=== PATIENT | female | born 1995 | race Caucasian/White ===

== ENCOUNTER 2017-06-01 03:25 | Inpatient (IN) | payer MEDICAID ==
[2017-06-01 03:55] LABS: APPEARANCE,URINE CLOUDY; BILIRUBIN,URINE NEGATIVE (NEGATIVE); GLUCOSE, URINE NEGATIVE (NEGATIVE); KETONES,URINE NEGATIVE (NEGATIVE)
[2017-06-01 03:56] LABS: LEUKOCYTE ESTERASE,URINE TRACE (NEGATIVE); NITRITE,URINE NEGATIVE (NEGATIVE); PROTEIN,URINE 30 mg/dL (NEGATIVE); RBC,URINE RARE /HPF; URINE SPECIFIC GRAVITY 1.023; UROBILINOGEN,URINE NEGATIVE mg/dL (<2.0); WBC,URINE RARE /HPF
[2017-06-01 04:16] LABS: URINE BARBITURATES SCREEN NEGATIVE; URINE METHADONE SCREEN NEGATIVE; URINE OPIATES LOW NEGATIVE; URINE PHENCYCLIDINE SCREEN NEGATIVE
[2017-06-01] MEDS ORDERED: ONDANSETRON HCL INJ/PF 4 MG/2 ML SDV ONE (04:59)
[2017-06-01 05:42] LABS: ABSOLUTE LYMPHOCYTES (AUTO) 1.2 10^3/uL (0.5-4.7); ABSOLUTE MONOCYTES (AUTO) 0.3 10^3/uL (0.1-1.4); BASOPHILS % (AUTO) 0.3 % (0-2); EOSINOPHILS % (AUTO) 0.1 % (0-6); HEMATOCRIT 34.3 % (36.0-47.0); HEMOGLOBIN 11.6 g/dL (12.0-15.5); HGB HCT DIFFERENCE 0.5; MEAN CORPUSCULAR HEMOGLOBIN 30.6 pg (27.0-33.4); MEAN CORPUSCULAR HGB CONC 33.9 g/dL (32.0-36.0); MEAN CORPUSCULAR VOLUME 90 fl (80-97); MONOCYTES % (AUTO) 2.2 % (3-13); RED BLOOD COUNT 3.81 10^6/uL (3.72-5.28); SEGMENTED NEUTROPHILS % (AUTO) 89.4 % (42-78); WHITE BLOOD COUNT 14.5 10^3/uL (4.0-10.5)
[2017-06-01 06:00] LABS: ALANINE AMINOTRANSFERASE 24 U/L (9-52); ALBUMIN 3.1 g/dL (3.5-5.0); ALKALINE PHOSPHATASE 73 U/L (38-126); ANION GAP 9 (5-19); ASPARTATE AMINO TRANSFERASE 12 U/L (14-36); BILIRUBIN,DIRECT 0.2 mg/dL (0.0-0.4); BILIRUBIN,TOTAL 0.2 mg/dL (0.2-1.3); BLOOD UREA NITROGEN 8 mg/dL (7-20); CALCIUM 8.9 mg/dL (8.4-10.2); CARBON DIOXIDE 23 mmol/L (22-30); CHLORIDE 107 mmol/L (98-107); CREATININE RESULT 0.56 mg/dL (0.52-1.25); GLUCOSE 125 mg/dL (75-110); POTASSIUM 3.9 mmol/L (3.6-5.0); SODIUM 138.7 mmol/L (137-145); TOTAL PROTEIN 5.8 g/dL (6.3-8.2)
[2017-06-01] MEDS ORDERED: MORPHINE SULFATE 10 MG/ML INJ ONE (06:34)
--- NOTE | 2017-06-01 08:19 | RADIOLOGY REPORT (SQ) ---
EXAM DESCRIPTION: U/S RETROPERITON (RENAL/AORTA) COMPLETED DATE/TIME: 06/01/2017 7:45 am REASON FOR STUDY: right sided back pain COMPARISON: None. TECHNIQUE: Dynamic and static grayscale images acquired of the kidneys and bladder and recorded on P ACS. Additional selected color Doppler and spectral images recorded. LIMITATIONS: None. FINDINGS: RIGHT KIDNEY: Normal size. Normal echogenicity. No solid or suspicious masses. No hydrone phrosis. No calcifications. LEFT KIDNEY: Normal size. Normal echogenicity. No solid or suspicious masses. No hydronephrosis. No calcifications. BLADDER: No masses. OTHER FINDINGS: No other significant finding. IMPRESSION: NORMAL RENAL AND BLADDER ULTRASOUND. COMMENT: The degree of renal pelvicalyceal dilation is within normal limits for the patient's curren t stage of . TECHNICAL DOCUMENTATION: JOB ID: [id number] [employer]- All Rights Reserved
--- NOTE | 2017-06-01 08:20 | RADIOLOGY REPORT (SQ) ---
EXAM DESCRIPTION: U/S OB LIMITED COMPLETED DATE/TIME: 06/01/2017 7:45 am REASON FOR STUDY: right sided back pain COMPARISON: None. TECHNIQUE: Limited transabdominal grayscale ultrasound for evaluation of specific requested obstetri brad parameters. LIMITATIONS: None. FINDINGS: EGA: 23 week 2 day. ANNELISE: 09/26/2017. EFW: 602 g. PERCENTILE: 37 percent. PLACENTA: Anterior. CERVICAL LENGTH: 3.3 cm. Closed. IRMA: Largest measured pocket 4.4 cm. FHR: 133 beats per minute. PRESENTATION: Cephalic. OTHER: No other significant findings. IMPRESSION: LIMITED OBSTETRICAL ULTRASOUND WITH MEASURED PARAMETERS DELINEATED ABOVE. Trimester of : Third trimester - 28 weeks to delivery. TECHNICAL DOCUMENTATION: JOB ID: [id number] [employer]- All Rights Reserved
[2017-06-01] MEDS: CEFAZOLIN 1 GM/D5W RTU 1 GM/50 ML RTUPB IV SCH ×2 (12:26→18:03)
[2017-06-01] MEDS: OXYCODONE-ACETAMINOPHEN 5-325 MG TABLET PO PRN (15:20)
[2017-06-01] MEDS: RINGERS SOLUTION,LACTATED 1,000 ML IV PRN (20:37)
[2017-06-02] MEDS: CEFAZOLIN 1 GM/D5W RTU 1 GM/50 ML RTUPB IV SCH ×4 (00:37→18:31)
[2017-06-02] MEDS: OXYCODONE-ACETAMINOPHEN 5-325 MG TABLET PO PRN ×2 (03:23→20:04)
[2017-06-02] MEDS ORDERED: DIPHENHYDRAMINE HCL 50 MG/ML VIAL IV ONE (04:45)
[2017-06-02] MEDS ORDERED: PROMETHAZINE HCL 25 MG SUPP.RECT PR ONE ×2 (04:45→12:45)
[2017-06-02] MEDS: ONDANSETRON 4 MG TAB.RAPDIS PO PRN ×2 (05:43→20:02)
[2017-06-02 06:52] LABS: HEMATOCRIT 34.8 % (36.0-47.0); HGB HCT DIFFERENCE 1.2; MEAN CORPUSCULAR VOLUME 89 fl (80-97); WHITE BLOOD COUNT 14.9 10^3/uL (4.0-10.5)
[2017-06-02 06:53] LABS: ABSOLUTE EOSINOPHILS # (AUTO) 0.1 10^3/uL (0.0-0.6); ABSOLUTE LYMPHOCYTES (AUTO) 1.8 10^3/uL (0.5-4.7); ABSOLUTE MONOCYTES (AUTO) 0.6 10^3/uL (0.1-1.4); ABSOLUTE NEUT (AUTO) 12.4 10^3/uL (1.7-8.2); BASOPHILS % (AUTO) 0.2 % (0-2); EOSINOPHILS % (AUTO) 0.4 % (0-6); LYMPHOCYTES % (AUTO) 11.9 % (13-45); MEAN CORPUSCULAR HEMOGLOBIN 30.8 pg (27.0-33.4); MEAN CORPUSCULAR HGB CONC 34.6 g/dL (32.0-36.0); MONOCYTES % (AUTO) 3.9 % (3-13); RED CELL DISTRIBUTION WIDTH 13.9 % (11.5-14.0); SEGMENTED NEUTROPHILS % (AUTO) 83.6 % (42-78)
[2017-06-02] MEDS ORDERED: HYDROMORPHONE HCL INJ/PF 2 MG/ML AMPULE IV ONE (10:00)
[2017-06-02] MEDS ORDERED: METOCLOPRAMIDE HCL INJ/PF 10 MG/2 ML SDV IV ONE ×2 (13:00)
--- NOTE | 2017-06-02 18:40 | PDOC PROGRESS REPORT ---
Subjective Progress Note for:: 06/02/17 Subjective:: seen at approximately noon today. Pt requiring breakthrough narcotics with IV pain meds. Pt reports continued Right flank pain - moving now into flank and RLQ. Denies f/c. She is still having nausea and some emesis but was able to tolerating cheerios Physical Exam - Physical Exam Vital Signs: Temp Pulse Resp BP Pulse Ox 98.2 F 73 17 101/44 L 100 06/02/17 11:51 06/02/17 11:51 06/02/17 11:51 06/02/17 11:51 06/02/17 11:51 Intake & Output 06/01/17 06/02/17 06/03/17 06:59 06:59 06:59 Intake Total 2872 Balance 2872 Weight 81.55 kg General appearance: PRESENT: no acute distress, well-developed, well-nourished Head exam: PRESENT: atraumatic, normocephalic Respiratory exam: PRESENT: clear to auscultation ashu, symmetrical, unlabored Cardiovascular exam: PRESENT: RRR. ABSENT: diastolic murmur, rubs, systolic murmur GI/Abdominal exam: PRESENT: normal bowel sounds, soft, other - mild right flank pain and ttp on mid right flank and RLQ. ABSENT: distended, guarding, mass, organolmegaly, rebound, tenderness Rectal exam: PRESENT: deferred Extremities exam: PRESENT: full ROM. ABSENT: calf tenderness, clubbing, pedal edema Musculoskeletal exam: PRESENT: ambulatory Neurological exam: PRESENT: alert, awake, oriented to person, oriented to place , oriented to time, oriented to situation, CN II-XII grossly intact. ABSENT: motor sensory deficit Psychiatric exam: PRESENT: appropriate affect, normal mood. ABSENT: homicidal ideation, suicidal ideation Skin exam: PRESENT: dry, intact, warm. ABSENT: cyanosis, rash Result Laboratory Results: 06/02/17 06:23 06/01/17 05:27 06/02/17 06:23 WBC 14.9 H RBC 3.90 Hgb 12.0 Hct 34.8 L MCV 89 MCH 30.8 MCHC 34.6 RDW 13.9 Plt Count 167 Seg Neutrophils % 83.6 H Lymphocytes % 11.9 L Monocytes % 3.9 Eosinophils % 0.4 Basophils % 0.2 Absolute Neutrophils 12.4 H Absolute Lymphocytes 1.8 Absolute Monocytes 0.6 Absolute Eosinophils 0.1 Absolute Basophils 0.0 Impressions: Obstetrics Ultrasound 06/01/17 00:00 IMPRESSION: LIMITED OBSTETRICAL ULTRASOUND WITH MEASURED PARAMETERS DELINEATED ABOVE. Trimester of : Third trimester - 28 weeks to delivery. Renal Ultrasound 06/01/17 00:00 IMPRESSION: NORMAL RENAL AND BLADDER ULTRASOUND. Status: Imported from PACS Assessment & Plan - Diagnosis (1) Renal colic on right side Is this a current diagnosis for this admission?: Yes Plan: Cont with pain meds prn. WIll change to admission since patient is requiring IV pain meds at intervals b/w op pain meds and still unable to tolerate adequate PO intake. Cont abx. Reviewed with pt that needs to wean of IV pain meds and needs to ambulated and tolerate po intake. (2) Pyelonephritis Is this a current diagnosis for this admission?: Yes Plan: continue abx. No fever (3) Qualifiers: Weeks of gestation: 24 weeks Qualified Code(s): Z3A.24 - 24 weeks gestation of Is this a current diagnosis for this admission?: Yes Plan: Cont supportive care for . Daily FHTs - Time Time Spent with patient: 15-24 minutes Critical Time spent with patient: Less than 15 minutes Medications reviewed and adjusted accordingly: Yes Anticipated discharge: Home Within: within 48 hours - Inpatient Certification Based on my medical assessment, after consideration of the patient's comorbidities, presenting symptoms, or acuity I expect that the services needed warrant INPATIENT care.: Yes I certify that my determination is in accordance with my understanding of Medicare's requirements for reasonable and necessary INPATIENT services [42 CFR 412.3e].: Yes Medical Necessity: Need For IV Fluids, Need for Pain Control - Plan Summary Plan Summary: Discharge home with po pain meds and po abx likely in am.
[2017-06-02] MEDS: RINGERS SOLUTION,LACTATED 1,000 ML IV PRN (21:06)
[2017-06-03] MEDS: CEFAZOLIN 1 GM/D5W RTU 1 GM/50 ML RTUPB IV SCH ×4 (00:12→17:02)
[2017-06-03] MEDS: RINGERS SOLUTION,LACTATED 1,000 ML IV PRN ×3 (05:25→22:23)
[2017-06-03] MEDS ORDERED: NA PHOS,M-B/NA PHOS,DI-BA (ADULT) 133 ML ENEMA PR ONE ×2 (09:48→13:13)
--- NOTE | 2017-06-03 09:53 | PDOC PROGRESS REPORT ---
Subjective Progress Note for:: 06/03/17 Subjective:: Pt seen resting in bed in mild discomfort. Pt states that her pain is on right flank, extending down to her right hip. Pt states that she has not been able to have bowel movement despite stool softeners. She has not seen any blood in her urine. Pt denies fevers, chills, SOB. Physical Exam - Physical Exam Vital Signs: Temp Pulse Resp BP Pulse Ox 98.7 F 65 16 125/74 100 06/03/17 07:50 06/03/17 07:50 06/03/17 07:50 06/03/17 07:50 06/03/17 07:50 Intake & Output 06/02/17 06/03/17 06/04/17 06:59 06:59 06:59 Intake Total 2872 1500 Balance 2872 1500 General appearance: PRESENT: no acute distress, cooperative, well-developed, well-nourished Head exam: PRESENT: normocephalic GI/Abdominal exam: PRESENT: soft Musculoskeletal exam: PRESENT: ambulatory, tenderness - Full ROM of right hip, slight hypertonicity to paraspinal muscles and posterior flank/hip muscles. Result Laboratory Results: 06/02/17 06:23 06/01/17 05:27 Impressions: Obstetrics Ultrasound 06/01/17 00:00 IMPRESSION: LIMITED OBSTETRICAL ULTRASOUND WITH MEASURED PARAMETERS DELINEATED ABOVE. Trimester of : Third trimester - 28 weeks to delivery. Renal Ultrasound 06/01/17 00:00 IMPRESSION: NORMAL RENAL AND BLADDER ULTRASOUND. Assessment & Plan - Diagnosis (1) Qualifiers: Weeks of gestation: 24 weeks Qualified Code(s): Z3A.24 - 24 weeks gestation of Is this a current diagnosis for this admission?: Yes (2) Pyelonephritis Is this a current diagnosis for this admission?: Yes Plan: Continue Cefazolin. Awaiting results of culture. Continue until improvement of symptoms. CBC in the AM (3) Renal colic on right side Is this a current diagnosis for this admission?: Yes Plan: Add tylenol - Time Time Spent with patient: 15-24 minutes Anticipated discharge: Home Within: within 48 hours
[2017-06-03] MEDS: ACETAMINOPHEN 325 MG TABLET PO PRN ×2 (10:16→16:23)
[2017-06-03] MEDS: DOCUSATE SODIUM 100 MG CAPSULE PO SCH ×2 (10:16→17:02)
[2017-06-03] MEDS: ONDANSETRON 4 MG TAB.RAPDIS PO PRN (17:27)
[2017-06-03] MEDS ORDERED: AMPICILLIN SOD/SULBACTAM 1.5 GM VIAL IV PRN (20:47)
[2017-06-03] MEDS: PROMETHAZINE HCL 25 MG TABLET PO PRN (21:31)
[2017-06-03] MEDS ORDERED: AMPICILLIN SOD INJ 2 GM VIAL ONE (21:52)
[2017-06-03] MEDS ORDERED: AMPICILLIN SOD/SULBACTAM 1.5 GM VIAL ONE ×2 (22:17→22:18)
[2017-06-03] MEDS: AMPICILLIN SODIUM/SULBACTAM NA 1.5 GM in NORMAL SALINE 50 ML IV SCH (22:22)
[2017-06-04] MEDS: ACETAMINOPHEN 325 MG TABLET PO PRN ×4 (00:05→23:17)
[2017-06-04] MEDS: AMPICILLIN SODIUM/SULBACTAM NA 1.5 GM in NORMAL SALINE 50 ML IV SCH ×4 (02:59→20:16)
[2017-06-04] MEDS: PROMETHAZINE HCL 25 MG TABLET PO PRN (05:03)
[2017-06-04 05:27] LABS: ABSOLUTE LYMPHOCYTES (AUTO) 1.9 10^3/uL (0.5-4.7); ABSOLUTE MONOCYTES (AUTO) 0.9 10^3/uL (0.1-1.4); ABSOLUTE NEUT (AUTO) 11.1 10^3/uL (1.7-8.2); BASOPHILS % (AUTO) 0.3 % (0-2); EOSINOPHILS % (AUTO) 0.1 % (0-6); HEMOGLOBIN 11.5 g/dL (12.0-15.5); HGB HCT DIFFERENCE 1.5; LYMPHOCYTES % (AUTO) 13.4 % (13-45); MEAN CORPUSCULAR HEMOGLOBIN 30.6 pg (27.0-33.4); MEAN CORPUSCULAR HGB CONC 34.8 g/dL (32.0-36.0); MEAN CORPUSCULAR VOLUME 88 fl (80-97); MONOCYTES % (AUTO) 6.2 % (3-13); RED BLOOD COUNT 3.76 10^6/uL (3.72-5.28); RED CELL DISTRIBUTION WIDTH 13.9 % (11.5-14.0); WHITE BLOOD COUNT 13.9 10^3/uL (4.0-10.5)
[2017-06-04] MEDS: RINGERS SOLUTION,LACTATED 1,000 ML IV PRN (07:25)
[2017-06-04] MEDS: DOCUSATE SODIUM 100 MG CAPSULE PO SCH ×2 (09:19→17:02)
[2017-06-04] MEDS ORDERED: GLYCERIN (PEDIATRIC) SUPP.RECT PR ONE (15:30)
--- NOTE | 2017-06-04 16:12 | RADIOLOGY REPORT (SQ) ---
EXAM DESCRIPTION: U/S ABDOMEN LTD W/DOPPLER COMPLETED DATE/TIME: 06/04/2017 3:10 pm REASON FOR STUDY: r/o abcess COMPARISON: OB ultrasound 06/01/2017 Bilateral renal ultrasound 06/01/2017 TECHNIQUE: Dynamic and static grayscale images acquired of the abdomen and recorded on PACS. Additio nal selected color Doppler and spectral images recorded. LIMITATIONS: Midline bowel gas FINDINGS: PANCREAS: Not well seen LIVER: No masses. Echotexture normal. LIVER VASCULATURE: Normal directional flow of the main portal vein and hepatic veins. GALLBLADDER: No stones. Normal wall thickness. No pericholecystic fluid. ULTRASOUND-DETECTED LORA'S SIGN: Negative. INTRAHEPATIC DUCTS AND COMMON DUCT: CBD and intrahepatic ducts normal caliber. No filling defects. INFERIOR VENA CAVA: Not well seen AORTA: Not well seen RIGHT KIDNEY: Normal size. There is mild dilatation of the right renal pelvis, 13 mm in greatest AP diameter. This is within normal range for patient's gestational status of 24 weeks. PERITONEAL AND RIGHT PLEURAL SPACE: No ascites or effusions. OTHER: No other significant findings. IMPRESSION: No gallstones or gallbladder wall thickening. No pericholecystic fluid. AP diameter of the right renal pelvis 13 mm, which is within normal limits given the patient's gestat ional status TECHNICAL DOCUMENTATION: JOB ID: [id number] [employer]- All Rights Reserved
[2017-06-04] MEDS ORDERED: BISACODYL 10 MG SUPP.RECT PR ONE (18:57)
--- NOTE | 2017-06-04 22:55 | PDOC PROGRESS REPORT ---
Subjective Progress Note for:: 06/04/17 Subjective:: seen at approximately 1300 today. Pt requiring tylenol for pain. Pt reports very constipated despite 2 enemas last night and therefore is not taking any narcotics. Pt reports continued Right flank pain - moving now into flank and RLQ. Denies f/c. She is still having nausea and some emesis - emesis lunch today Physical Exam - Physical Exam Vital Signs: Temp Pulse Resp BP Pulse Ox 98.7 F 69 18 120/66 98 06/04/17 07:25 06/04/17 07:25 06/04/17 07:25 06/04/17 07:25 06/04/17 07:25 Intake & Output 06/03/17 06/04/17 06/05/17 06:59 06:59 06:59 Intake Total 1500 1500 1240 Balance 1500 1500 1240 General appearance: PRESENT: no acute distress, well-developed, well-nourished Head exam: PRESENT: atraumatic, normocephalic Respiratory exam: PRESENT: clear to auscultation ashu, symmetrical, unlabored. ABSENT: decreased breath sounds, rales, retraction, tachypnea Cardiovascular exam: PRESENT: RRR. ABSENT: diastolic murmur, rubs, systolic murmur Pulses: PRESENT: normal dorsalis pedis pul, +2 pedal pulses bilateral GI/Abdominal exam: PRESENT: normal bowel sounds, soft, other - Right CVAT and right flank pain. ABSENT: distended, guarding, mass, organolmegaly, rebound, tenderness Rectal exam: PRESENT: deferred Extremities exam: PRESENT: full ROM. ABSENT: calf tenderness, clubbing, pedal edema Musculoskeletal exam: PRESENT: ambulatory Neurological exam: PRESENT: alert, awake, oriented to person, oriented to place , oriented to time, oriented to situation, CN II-XII grossly intact. ABSENT: motor sensory deficit Psychiatric exam: PRESENT: appropriate affect, normal mood. ABSENT: homicidal ideation, suicidal ideation Skin exam: PRESENT: dry, intact, warm. ABSENT: cyanosis, rash Result Laboratory Results: 06/04/17 05:16 06/01/17 05:27 06/04/17 05:16 WBC 13.9 H RBC 3.76 Hgb 11.5 L Hct 33.0 L MCV 88 MCH 30.6 MCHC 34.8 RDW 13.9 Plt Count 179 Seg Neutrophils % 80.0 H Lymphocytes % 13.4 Monocytes % 6.2 Eosinophils % 0.1 Basophils % 0.3 Absolute Neutrophils 11.1 H Absolute Lymphocytes 1.9 Absolute Monocytes 0.9 Absolute Eosinophils 0.0 Absolute Basophils 0.0 06/02/17 15:32 Clean Catch Midstream Urine Culture - Final NO GROWTH 2 DAYS Impressions: Obstetrics Ultrasound 06/01/17 00:00 IMPRESSION: LIMITED OBSTETRICAL ULTRASOUND WITH MEASURED PARAMETERS DELINEATED ABOVE. Trimester of : Third trimester - 28 weeks to delivery. Renal Ultrasound 06/01/17 00:00 IMPRESSION: NORMAL RENAL AND BLADDER ULTRASOUND. Status: Imported from PACS Assessment & Plan - Diagnosis (1) Renal colic on right side Is this a current diagnosis for this admission?: Yes Plan: Cont with pain meds prn. Cont abx - now on Unasyn approx 24 hours and pain reportedly improved but still with Right CVAT. Reviewed with pt that needs to ambulate and tolerate po intake. cont prn antiemetics (2) Pyelonephritis Is this a current diagnosis for this admission?: Yes Plan: continue abx - now approx 24 hr of Unasyn. No fever. Should be able to discharge tomorrow if Right CVAT resolves. US of RUQ and renal US ordered to r/ o abscess. Urine culture obtained on Monday (as was not done on admission) - No growth final result (again this was obtained after 24 hours of abx) (3) Qualifiers: Weeks of gestation: 24 weeks Qualified Code(s): Z3A.24 - 24 weeks gestation of Is this a current diagnosis for this admission?: Yes Plan: Cont supportive care for . Daily FHTs (4) Constipation Qualifiers: Constipation type: drug induced constipation Qualified Code(s): K59.03 - Drug induced constipation Is this a current diagnosis for this admission?: Yes Plan: Will try glycerin supp since no effect with enema x 2. If glycerin does not work then will try dulcolax. Cont Colace BID. - Time Time Spent with patient: 15-24 minutes Critical Time spent with patient: Less than 15 minutes Medications reviewed and adjusted accordingly: Yes Anticipated discharge: Home Within: within 24 hours - Inpatient Certification Based on my medical assessment, after consideration of the patient's comorbidities, presenting symptoms, or acuity I expect that the services needed warrant INPATIENT care.: Yes I certify that my determination is in accordance with my understanding of Medicare's requirements for reasonable and necessary INPATIENT services [42 CFR 412.3e].: Yes Medical Necessity: Significant Comorbidiites Make Outpatient Treatment Too Risky , Need for IV Antibiotics 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
[2017-06-05] MEDS: AMPICILLIN SODIUM/SULBACTAM NA 1.5 GM in NORMAL SALINE 50 ML IV SCH ×2 (02:16→09:58)
[2017-06-05] MEDS: RINGERS SOLUTION,LACTATED 1,000 ML IV PRN (04:38)
[2017-06-05 05:59] LABS: ABSOLUTE BASOPHILS # (AUTO) 0.1 10^3/uL (0.0-0.2); ABSOLUTE LYMPHOCYTES (AUTO) 2.4 10^3/uL (0.5-4.7); ABSOLUTE MONOCYTES (AUTO) 0.8 10^3/uL (0.1-1.4); ABSOLUTE NEUT (AUTO) 8.3 10^3/uL (1.7-8.2); BASOPHILS % (AUTO) 0.5 % (0-2); EOSINOPHILS % (AUTO) 0.4 % (0-6); HEMATOCRIT 32.8 % (36.0-47.0); HEMOGLOBIN 11.5 g/dL (12.0-15.5); HGB HCT DIFFERENCE 1.7; LYMPHOCYTES % (AUTO) 20.4 % (13-45); MEAN CORPUSCULAR HEMOGLOBIN 31.2 pg (27.0-33.4); MEAN CORPUSCULAR VOLUME 89 fl (80-97); MONOCYTES % (AUTO) 6.9 % (3-13); RED BLOOD COUNT 3.68 10^6/uL (3.72-5.28); RED CELL DISTRIBUTION WIDTH 13.5 % (11.5-14.0); SEGMENTED NEUTROPHILS % (AUTO) 71.8 % (42-78); WHITE BLOOD COUNT 11.6 10^3/uL (4.0-10.5)
[2017-06-05] MEDS: DOCUSATE SODIUM 100 MG CAPSULE PO SCH (09:10)
--- NOTE | 2017-06-05 10:36 | PDOC PROGRESS REPORT ---
Subjective Subjective:: Pt reports feeling much better today No n/v, CVA tenderness is almost gone No ctx's, vb or lof Physical Exam - Physical Exam Vital Signs: Temp Pulse Resp BP Pulse Ox 98.1 F 64 14 110/66 100 06/05/17 08:11 06/05/17 08:11 06/05/17 08:11 06/05/17 08:11 06/05/17 08:11 Intake & Output 06/04/17 06/05/17 06/06/17 06:59 06:59 06:59 Intake Total 1500 3390 50 Balance 1500 3390 50 General appearance: PRESENT: no acute distress, cooperative, well-developed - No CVA tenderness GI/Abdominal exam: PRESENT: normal bowel sounds, soft Result Laboratory Results: 06/05/17 05:45 06/01/17 05:27 06/05/17 05:45 WBC 11.6 H RBC 3.68 L Hgb 11.5 L Hct 32.8 L MCV 89 MCH 31.2 MCHC 35.0 RDW 13.5 Plt Count 171 Seg Neutrophils % 71.8 Lymphocytes % 20.4 Monocytes % 6.9 Eosinophils % 0.4 Basophils % 0.5 Absolute Neutrophils 8.3 H Absolute Lymphocytes 2.4 Absolute Monocytes 0.8 Absolute Eosinophils 0.0 Absolute Basophils 0.1 06/02/17 15:32 Clean Catch Midstream Urine Culture - Final NO GROWTH 2 DAYS Impressions: Obstetrics Ultrasound 06/01/17 00:00 IMPRESSION: LIMITED OBSTETRICAL ULTRASOUND WITH MEASURED PARAMETERS DELINEATED ABOVE. Trimester of : Third trimester - 28 weeks to delivery. Renal Ultrasound 06/01/17 00:00 IMPRESSION: NORMAL RENAL AND BLADDER ULTRASOUND. Abdomen Ultrasound 06/04/17 00:00 IMPRESSION: No gallstones or gallbladder wall thickening. No pericholecystic fluid. 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
[2017-06-05 11:22] VITALS: BP 110/65
--- NOTE | 2017-06-07 10:29 | Admission Physical ---
Datetime Report Generated by CPN: 06/07/2017 10:28 CURRENT ADMISSION Hx Assessment: The History has been Reviewed and is Current Chief Complaint: Other Chief Complaint Other: intermittent r flank pain associated with nausea and vomiting Indication for Induction: Observation/Evaluation; Medical Complication Admit Impression- Other: flank pain with nausea and vomiting Admit Plan: Observation/Evaluation Admit Plan- Other: supportive care ALLERGIES Medication Allergies: No Medication Allergies: No Known Allergies (06/01/2017) Food Allergies: Maple- rash OBSTETRICAL HISTORY EDC: 09/22/2017 00:00 : 1 Para: 0 Term: 0 : 0 SAB: 0 IAB: 0 Ectopic: 0 Livin Cesareans: 0 VBACs: 0 Multiple Births: 0 Gestational Diabetes: No Rh Sensitization: No Incompetent Cervix: No BEN: No Infertility: No ART Treatment: No Uterine Anomaly: No IUGR: No Hx Previous C/S: No Macrosomia: No Hx Loss/Stillborn: No PIH: No Hx : No Placenta Previa/Abruption: No Depression/PP Depression: No PTL/PROM: No Post Hemorrhage: No Current Procedures: Ultrasound Obstetrical History Comments: G1-Current SEE RECORDS Alcohol: No Marijuana : No Cocaine: No Other Illicit Drugs: No Cigarettes: Never Smoker. 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: No Heart Disease: No Hosp/Surgery: No Autoimmune Disorder: No Anesthetic Complications: No Kidney Disease: No Abnormal Pap Smear: No Neuro/Epilepsy: No Psychiatric Disorders: Yes Other Medical Diseases: Yes Hepatitis/Liver Disease: No Significant Family History: No Varicosities/Phlebitis: No Trauma/Violence : No Thyroid Dysfunction: No Medical History Comments: Migraines; Asthma-exercise induced; Hx anxiety-no meds INFECTIOUS HISTORY Gonorrhea: No Genital Herpes: No Chlamydia: No Tuberculosis: No Syphilis: No Hepatitis: No HIV/AIDS Exposure: No Rash or Viral Illness: No HPV: Yes Infectious History Comments: 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 It had totally resolved and pt had iv out when it recurred. Vital Signs: Reviewed FETUS A EGA: 23.6 Monitoring: External US FHR Comments: appropriate for gest age Admit Comment: IUP at 23.6-suspect nephrolithiasis-check ob sono and sono of right adnexa and ureter -obs for supportive care PLANS FOR LABOR AND DELIVERY Labor and Delivery: None Pain Management: Epidural Feeding Preference: Breast Benefit of Breast Feed Discussed: Yes Circumcision: No INFORMED CONSENT Signature: with User ID: [email or web address]
== END 2017-06-05 12:15 | disposition home or self-care (01) | DRG 781 ==
LOC: LC 03:25 → LR 10:06 → 2S 11:01 → OBSVTOIN 06-02 18:44
PROVIDERS: ADMIT Obstetrics & Gynecology; ATTEND Obstetrics & Gynecology
DX: O26.892 Other specified pregnancy related conditions, second trimester (principal); O36.0920 Maternal care for other rhesus isoimmunization, second trimester, not applicable or unspecified; N23 Unspecified renal colic; O23.02 Infections of kidney in pregnancy, second trimester; F41.9 Anxiety disorder, unspecified; O99.342 Other mental disorders complicating pregnancy, second trimester; K59.00 Constipation, unspecified; Z3A.23 23 weeks gestation of pregnancy
CPT/HCPCS: 36415; 76705; 76770; 76815; 80053; 80307; 81001; 85025; 87086; 93976; G0378; J0295; J0690; J1170; J1200; J2270; J2405; J3490; J7120; S0119